=== PATIENT | male | born 2000 | race Two or more races ===

== ENCOUNTER 2021-01-23 15:35 | Emergency (ER) | payer MEDICAID, OTHER ==
[~2021-01-23] VITALS: Ht 185.4 cm; Wt 108.9 kg
[2021-01-23 15:38] VITALS: BP 129/78
== END 2021-01-23 17:45 | disposition left against medical advice (07) ==
LOC: ER 15:35
DX: N50.819 Testicular pain, unspecified (principal); Z53.21 Procedure and treatment not carried out due to patient leaving prior to being seen by health care provider